=== PATIENT | female | born 1995 | race Caucasian/White ===

== ENCOUNTER → 2018-03-19 12:05 | Observation (INO) ==
--- NOTE | 2018-03-19 12:03 | Discharge Summary ---
Date of Encounter: 03/19/18 Time of Encounter: 12:01 - Discharge Diagnosis (1) 38 weeks gestation of Priority: Primary Status: Acute Comments: admitted for observation (2) NST (non-stress test) reactive on surveillance Priority: Secondary Status: Acute Comments: Baseline 145 bpm moderate variability +15x15 accels no decels noted. CAt. 1 tracing. Irregular contractions noted. Discussed patient with Dr. Jc. Patient to be discharged home and report tomorrow at schedule induction time (3) Gestational diabetes Priority: Secondary Status: Acute Comments: Scheduled for IOL tomorrow at 0600 Qualifiers: Gestational diabetes mellitus control: oral hypoglycemic-controlled Trimester: third trimester Qualified Code(s): O24.415 - Gestational diabetes mellitus in , controlled by oral hypoglycemic drugs - Discharge Medications Home Medications: metFORMIN [Glucophage] 500 mg PO BIDWM 03/19/18 [History] Allergies/Adverse Reactions: 3 Allergy/AdvReac Type Severity Reaction Status Date / Time No Known Allergies Allergy Verified 01/21/18 18:53 Date of admission: 03/19/18 09:27 Primary care physician: PCP NONE Discharging clinician: Nisha Fitzpatrick Anticipated date of discharge: 03/19/18 - Patient Status Disposition: Home, Self-Care Condition: Good Functional capacity at discharge: independent ambulation - Discharge Instructions Follow Up With: NONE,PCP [Primary Care Provider] - Low Houston MD [Partnered Physician] - Additional Instructions: LABOR AND DELIVERY DISCHARGE INSTRUCTIONS Signs and Symptoms to be Reported to your Doctor Immediately: * Sudden gush, continuous or intermittent lead of fluid from vagina (note the time of gush and color of fluid) * Onset of bright red vaginal bleeding with or without pain (if you had a vaginal exam during this visit you may notice some dark red spotting. This is normal.) * Contractions that are 5 minutes apart (from the beginning of one contraction to the beginning of the next) and last 45-60 seonds; contractions that you can no longer walk, talk or laugh through. * A change in the baby's activity. This could be an increase or decrease in activity. * Severe headache which does not go away with tylenol. * Sudden swelling in the face, hands, arms and/or legs. * Upper abdominal pain - sometimes associated with heartburn or nausea and is not relieved by Maalox, Mylanta or Tums. * Kick Counts __ One hour after a meal, lay down on one side in a quiet place. Count the number of time the baby moves during an hour. If less than 6 movements, notify your physician Diet: *Force fluids, 8 to 10 tall glasses of fluid per day - may include popsicles and jello *Limit caffeine - this includes chocolate, coffee, tea, any soft drink containing such as all anu, Dawit Yellow and Mountain Dew - Diet and Activity Activity: increase activity as tolerated Diet: diabetic diet Hospital Course [employer] Hospital course: Patient is a 23 y/o at 38w3 days presents to labor and delivery from OB office for monitoring. On NST in office FHR was reported to be 170 bpm. Patient reports +FM. Denies any LOF or VB. Time Attestation: Total time spent providing and/or coordinating discharge services: Time Spent: Less than 30 minutes Exam - Constitutional General appearance IM: A&O X 3, pleasant, answers questions appropriately - Respiratory Respiratory exam: Present: CTAB - Cardiovascular Cardiovascular exam IM: Present: RRR, +S1, +S2 - GI/Abdominal GI/Abdominal exam IM: normal bowel sounds - Neurological Exam Neurological exam: alert, oriented X3, reflexes normal - VTE Reasons for not Prescribing Prophylaxis: Treatment not Indicated - Low risk for VTE
== END | disposition home or self-care (01) ==
LOC: 1NENULAB
PROVIDERS: ADMIT Obstetrics & Gynecology; ATTEND Obstetrics & Gynecology

== ENCOUNTER 2018-03-20 06:17 | Inpatient (IN) ==
[2018-03-20] MEDS ORDERED: Naloxone 0.4 MG/ML INJ IVP PRN (06:35)
[2018-03-20] MEDS ORDERED: Famotidine 20 MG/2 ML VIAL IVP PRN (06:35)
[2018-03-20] MEDS ORDERED: Metoclopramide 10 MG/2 ML VIAL IVP PRN (06:35)
[2018-03-20] MEDS ORDERED: Ondansetron 4 MG/2 ML VIAL IVP PRN (06:35)
[2018-03-20] MEDS ORDERED: *HR* Nalbuphine 10 MG/ML AMPUL IVP PRN (06:35)
[2018-03-20 07:15] LABS: Basophils % 0.1 %; Eosinophils # 0.1 K/mcL (0.0-0.6); Eosinophils % 0.8 %; Hematocrit 34.8 % (35.3-44.9); Hemoglobin 11.9 g/dL (11.5-15.4); Immature Granulocytes % 0.6 % (0-4); Lymphocytes # 2.1 K/mcL (0.6-4.6); Lymphocytes % 19.4 %; Mean Corpuscular HGB Conc 34.2 g/dL (31.6-35.5); Mean Corpuscular Hemoglobin 29.8 pg (28.0-33.3); Mean Platelet Volume 10.1 fL (9.4-12.4); Monocytes # 0.7 K/mcL (0.0-1.3); Monocytes % 6.4 %; Neutrophils # 7.9 K/mcL (1.6-8.9); Platelet Count 248 K/mcL (140-400); Red Cell Distribution Width 13.7 % (11.5-14.5); Segmented Neutrophils % 72.7 %
[2018-03-20] MEDS ORDERED: miSOPROStol 25 MCG TABLET PO SCH (08:00)
[2018-03-20 09:10] LABS: Amphetamine Screen,Urine Negative ng/mL (Cutoff=1000); Barbiturate Screen,Urine Negative ng/mL (Cutoff=200); Benzodiazepines Screen,Urine Negative ng/mL (Cutoff=200); Cannabinoid Screen,Urine Negative ng/mL (Cutoff = 50); Cocaine Screen,Urine Negative ng/mL (Cutoff= 300); Opiate Screen,Urine Negative ng/mL (Cutoff=300); Phencyclidine Screen,Urine Negative ng/mL (Cutoff=25)
--- NOTE | 2018-03-20 10:01 | OB/GYN History & Physical ---
Date of Encounter: 03/20/18 Time of Encounter: 09:57 Assessment and Plan (1) 38 weeks gestation of Current visit: No Status: Acute (2) Gestational diabetes Current visit: No Status: Acute Admit to labor and delivery for induction of labor Cytotec by mouth Nubain and epidural as desired Anticipate Qualifiers: Gestational diabetes mellitus control: oral hypoglycemic-controlled Trimester: third trimester Qualified Code(s): O24.415 - Gestational diabetes mellitus in , controlled by oral hypoglycemic drugs History of Present Illness Chief complaint: Induction of labor HPI: Ms. Akbar is a 23 year old female () at 38 weeks +4 days gestation presenting to [facility] and delivery for induction of labor. Patient's was complicated by gestational diabetes for which she is prescribed metformin but admits to poor adherence. Patient had late entry to care. Patient reports good movement, denies vaginal bleeding or leaking of fluid prior to admission, denies headache, visual changes right upper quadrant pain. Labs: O+, VZV IgG antibody positive, Gardnerella Vaginalis DNA detected, Rubella pending, HIV antigen/antibody combo negative, Hep B negative, all other serologies negative. Past Med Surg Social Fam HX - Past Medical History Medical history: hypertension Psychiatric history: no psych history - Past Surgical History Surgical History: other Additional surgical history: tubes, T&A - Social History Smoking Status: Never smoker Smokeless Tobacco Status: No (previous) Alcohol use: none Drug use: none - Family History Father Adopted: No Family Member Ethnicity: Non- Living Status: Still Living Hx Family Cardiac Disorders: No Hx Family Respiratory Disorders: No Hx Family Cancer: No Hx Family GI Disorders: No Hx Family Genitourinary Disorders: No Hx Family Endocrine Disorder: No Hx Family Musculoskeletal Disorders: No Hx Family Neuromuscular Disorders: No Hx Family Neurologic Disorders: No Hx Family HEENT Disorders: No Hx Family Autoimmune Disorders: No Hx Family Reproductive Disorders: No Hx Family Psychosocial Disorders: No Hx Family Medical Disorders: No Obstetrical History - Pregnancies : 3 Para: 2 Term: 2 : 0 Ab's: 0 Livin Medications and Allergies metFORMIN [Glucophage] 500 mg PO BIDWM 03/19/18 [History] 3 Allergy/AdvReac Type Severity Reaction Status Date / Time No Known Allergies Allergy Verified 01/21/18 18:53 Review of System OB All systems PM: reviewed and no additional remarkable complaints except as stated Exam - Constitutional Constitutional: well developed, well nourished, no acute distress, obese - HEENT HEENT: EOMI, PERRL, Normocephaly, Mucus Membranes Moist - Lungs Respiratory exam: CTAB - Cardiovascular Cardiovascular exam: RRR, +S1, +S2 - Abdomen Abdomen: Present: bowel sounds normal, gravid, non tender. Absent: guarding noted, hepatomegaly, splenomegaly - Extremities Deep Tendon Reflex Grade: 2+ Normal Results Result Diagrams: 03/20/18 07:11 03/20/18 07:11 Abnormal lab results Hct 34.8 % (35.3-44.9) L 03/20/18 07:11 All other labs normal. - VTE Reasons for not Prescribing Prophylaxis: Treatment not Indicated - Low risk for VTE - Attending Attestation Patient was seen with resident. I have reviewed his history and physical and agree with its contents. Low Houston MD , FACOG
[2018-03-20] MEDS ORDERED: Oxytocin 20 units/ LR 1000 mL 20 UNIT/1,000 ML BAG IVC SCH ×2 (10:45→22:27)
[2018-03-20] MEDS: Ringers Solution, Lactated 1,000 ML IVC SCH ×2 (11:06→17:26)
[2018-03-20 11:29] LABS: HIV-1&2 Antibody & p24 Ag Nonreactive (Nonreactive); Hepatitis B Surface Antigen Nonreactive (Nonreactive)
--- NOTE | 2018-03-20 13:30 | OB Labor Progress Note ---
Date of Encounter: 03/20/18 Time of Encounter: 13:29 Labor Progress Note - Subjective Subjective: Pt coping with contractions - Cervix Cervix: 4/80/-2 - Heart Tones Heart Tones: 145/moderate/+accels/-decels - Gould Gould: 1-3 - Plan Plan: Continue pitocin per policy nuabin and epidural as desired Anticipate
--- NOTE | 2018-03-20 18:35 | OB Labor Progress Note ---
Date of Encounter: 03/20/18 Time of Encounter: 18:33 Labor Progress Note - Subjective Subjective: patient coping with contractions - Cervix Cervix: 6-7/90/-1 - Heart Tones Heart Tones: 140/moderate/-accels/variable, early late decels - Vancleave Vancleave: 1-3 - Plan Plan: Frequent repositioning pitocin per policy epidural as desired Dr. Houston updated on status Anticipate
--- NOTE | 2018-03-20 19:10 | OB Labor Progress Note ---
Date of Encounter: 03/20/18 Time of Encounter: 19:12 Labor Progress Note - Subjective Subjective: Anesthesiology spoke with patient regarding options for pain management. Patient emphatically refused epidural and precautions were explained including the risk for requiring general anesthesia in the case of emergent section. - Cervix Cervix: 8-9/90%/0 station - Heart Tones Heart Tones: Baseline 150s - [place]: Variable decelerations - Plan Plan: Frequent repositioning Internal monitoring pitocin per policy epidural as desired Anticipate
--- NOTE | 2018-03-20 20:07 | OB/GYN Procedure Note ---
Delivery - Delivery Date: 03/20/18 Provider: Arianna Cazares (Marcelo Johansen PGY1 assist) Intrapartum events: none Delivery induction: oxytocin, misoprostol Delivery monitor: external FHT, external uterine Anesthesia: intravenous Quantitated Blood Loss: 300 - (s) Infant A Delivery Date: 03/20/18 Infant Delivery Time: 19:46 Presentation: vertex Position: OA Route of delivery: Gender: Male Viability: Viable Pounds: 8 Ounces: 12 Weight Gram: 3970 kg at 1 minute: 8 at 5 mins: 9 Shoulder Dystocia: encountered Shoulder Dystocia Maneuvers: Bettina maneuver, suprapubic pressure, Mac Screw maneuver Specimens collected: cord blood Placenta: spontaneous Cord: nuchal cord, 3 umbilical vessels - Repair Episiotomy: none Laceration Description: None - Complications Delivery complications: none Delivery comments: Induction of labor for gestational diabetes, progressed to complete, maternal bearing down efforts to of liveborn male. Vertex delivered OA, with rotation into LOT, Nuchal cord identified in reduced, shoulder dystocia noted, Bettina, suprapubic pressure, wood screw maneuver into ROT, used to dislodge shoulder, shoulder dystocia time 45 seconds. Cord immediately clamped and cut and limp placed on radiant warmer for drying and stimulation. Apgars 8/ 9. Placenta delivered spontaneously (Metzger) complete and intact upon inspection. Fundus massaged until firm and pitocin started per policy. Perineal lacerations noted. EBL 300. Dr. Houston at bedside for possible and encountered shoulder dystocia - Disposition Mom disposition: stable in LDR Petros disposition: stable in LDR - Comments Comments: I was present at the time of delivery and the second stage. I assisted in the delivery. I reviewed the contents of this note and agree with them.
[2018-03-20] MEDS ORDERED: Lanolin 28 GM TUBE TP PRN (22:27)
[2018-03-20] MEDS ORDERED: Acetaminophen 325 MG TABLET PO PRN (22:27)
[2018-03-20] MEDS ORDERED: Benzocaine/Menthol 56 GM AEROSOL SPRAY TP PRN (22:27)
[2018-03-20] MEDS ORDERED: Ibuprofen 600 MG TABLET PO PRN (22:27)
[2018-03-20] MEDS ORDERED: Measles/Mumps/Rubella Vacc 0.5 ML VIAL SQ PRN (22:27)
[2018-03-21 06:45] LABS: Basophils % 0.2 %; Eosinophils % 0.2 %; Hematocrit 33.2 % (35.3-44.9); Hemoglobin 11.4 g/dL (11.5-15.4); Lymphocytes # 2.1 K/mcL (0.6-4.6); Lymphocytes % 10.8 %; Mean Corpuscular HGB Conc 34.3 g/dL (31.6-35.5); Mean Corpuscular Hemoglobin 29.9 pg (28.0-33.3); Mean Corpuscular Volume 87.1 fL (83.0-100.0); Mean Platelet Volume 9.9 fL (9.4-12.4); Monocytes # 1.4 K/mcL (0.0-1.3); Monocytes % 7.5 %; Neutrophils # 15.3 K/mcL (1.6-8.9); Platelet Count 257 K/mcL (140-400); Red Blood Count 3.81 M/mcL (3.82-4.97); Red Cell Distribution Width 13.6 % (11.5-14.5); Segmented Neutrophils % 80.3 %
[2018-03-21] MEDS: Prenatal Vit/FA 1 EACH TABLET PO SCH (08:08)
--- NOTE | 2018-03-21 09:47 | OB/GYN Progress Note ---
Date of Encounter: 03/21/18 Time of Encounter: 09:42 - Assessment and Plan (1) Vaginal delivery Current Visit: Yes Status: Acute Pt meeting milestones. Anticipate discharge home PPD#2. (2) Gestational diabetes Current Visit: No Status: Acute Plan for 2 hour GTT in 6 weeks. Qualifiers: Gestational diabetes mellitus control: oral hypoglycemic-controlled Trimester: third trimester Qualified Code(s): O24.415 - Gestational diabetes mellitus in , controlled by oral hypoglycemic drugs Subjective - Subjective Patient reports: appetite normal, voiding normally, pain well controlled, ambulating normally : doing well, bottle feeding Objective - Latest Vital Signs Latest vital signs: Vital Signs Temp Pulse Resp BP Pulse Ox 03/21/18 07:46 98.8 F 86 14 120/84 99 03/21/18 00:10 99 F 104 20 124/73 97 03/20/18 23:10 98.6 F 65 14 129/78 97 03/20/18 22:10 98.7 F 96 14 129/82 96 Intake and Output 03/20/18 03/21/18 03/21/18 23:59 07:59 15:59 Intake Total 800 / 800 1300 / 1300 300 / 300 Output Total 900 / 900 500 / 500 Balance -100 / -100 800 / 800 300 / 300 Intake: IV Fluids 800 / 800 Lactated Ringers 1,000 ML @ 125 800 / 800 mls/hr IVC .Q8H [facility] Rx#: [id number] Oral 300 / 300 300 / 300 Other 1000 / 1000 Output: Urine 500 / 500 500 / 500 Estimated Blood Loss 300 / 300 Straight Cath 100 / 100 Other: Meal Breakfast Percent of Meal Consumed 100% Weight 94.256 kg Patient Weight 03/21/18 23:59 Weight 94.256 kg - Exam Lungs: bilateral: normal Chest: Normal S2 Extremities: Present: edema (mild bilaterally) Abdomen: Present: soft. Absent: tenderness Uterus: Present: firm. Absent: tenderness Uterus Position: At Umbilicus - Labs Labs: Laboratory Results - last 24 hr 03/20/18 03/20/18 03/21/18 10:11 11:28 06:04 WBC 19.0 H D RBC 3.81 L Hgb 11.4 L Hct 33.2 L MCV 87.1 MCH 29.9 MCHC 34.3 RDW 13.6 Plt Count 257 MPV 9.9 Immature Gran % 1.0 Seg Neutrophils % 80.3 Lymphocytes % 10.8 Monocytes % 7.5 Eosinophils % 0.2 Basophils % 0.2 Neutrophils # 15.3 H Lymphocytes # 2.1 Monocytes # 1.4 H Eosinophils # 0.0 Basophils # 0.0 Immature Plt Fraction 4.0 POC Glucose 84 Hep Bs Antigen Nonreactive HIV Ag/Ab Combo Qual Nonreactive
[2018-03-22 08:10] VITALS: BP 115/69
[2018-03-22] MEDS: Prenatal Vit/FA 1 EACH TABLET PO SCH (08:11)
--- NOTE | 2018-03-22 09:46 | Discharge Summary ---
Date of Encounter: 03/22/18 Time of Encounter: 09:44 - Discharge Diagnosis (1) Vaginal delivery Priority: Primary Status: Acute Comments: continue routine care discharge home today follow up with Dr. Houston in 4-6 weeks (2) Gestational diabetes Priority: Secondary Status: Acute Comments: Patient will need a 2 hour gtt after 6 weeks pp Qualifiers: Gestational diabetes mellitus control: oral hypoglycemic-controlled Trimester: third trimester Qualified Code(s): O24.415 - Gestational diabetes mellitus in , controlled by oral hypoglycemic drugs - Discharge Medications Allergies/Adverse Reactions: 3 Allergy/AdvReac Type Severity Reaction Status Date / Time No Known Allergies Allergy Verified 01/21/18 18:53 Data Procedures and tests throughout hospitalization: Laboratory Tests 03/20/18 03/20/18 03/20/18 07:11 07:11 07:11 WBC 10.8 RBC 4.00 Hgb 11.9 Hct 34.8 L MCV 87.0 MCH 29.8 MCHC 34.2 RDW 13.7 Plt Count 248 MPV 10.1 Immature Gran % 0.6 Seg Neutrophils % 72.7 Lymphocytes % 19.4 Monocytes % 6.4 Eosinophils % 0.8 Basophils % 0.1 Neutrophils # 7.9 Lymphocytes # 2.1 Monocytes # 0.7 Eosinophils # 0.1 Basophils # 0.0 Immature Plt Fraction Glucose 98 POC Glucose Urine Opiates Screen Negative Ur Barbiturates Screen Negative Ur Phencyclidine Scrn Negative Ur Amphetamines Screen Negative U Benzodiazepines Scrn Negative Urine Cocaine Screen Negative U Marijuana (THC) Screen Negative Ur Drug Screen Interp See Below Hep Bs Antigen HIV Ag/Ab Combo Qual 03/20/18 03/20/18 03/20/18 09:19 10:11 11:28 WBC RBC Hgb Hct MCV MCH MCHC RDW Plt Count MPV Immature Gran % Seg Neutrophils % Lymphocytes % Monocytes % Eosinophils % Basophils % Neutrophils # Lymphocytes # Monocytes # Eosinophils # Basophils # Immature Plt Fraction Glucose POC Glucose 87 84 Urine Opiates Screen Ur Barbiturates Screen Ur Phencyclidine Scrn Ur Amphetamines Screen U Benzodiazepines Scrn Urine Cocaine Screen U Marijuana (THC) Screen Ur Drug Screen Interp Hep Bs Antigen Nonreactive HIV Ag/Ab Combo Qual Nonreactive 03/21/18 06:04 WBC 19.0 H D RBC 3.81 L Hgb 11.4 L Hct 33.2 L MCV 87.1 MCH 29.9 MCHC 34.3 RDW 13.6 Plt Count 257 MPV 9.9 Immature Gran % 1.0 Seg Neutrophils % 80.3 Lymphocytes % 10.8 Monocytes % 7.5 Eosinophils % 0.2 Basophils % 0.2 Neutrophils # 15.3 H Lymphocytes # 2.1 Monocytes # 1.4 H Eosinophils # 0.0 Basophils # 0.0 Immature Plt Fraction 4.0 Glucose POC Glucose Urine Opiates Screen Ur Barbiturates Screen Ur Phencyclidine Scrn Ur Amphetamines Screen U Benzodiazepines Scrn Urine Cocaine Screen U Marijuana (THC) Screen Ur Drug Screen Interp Hep Bs Antigen HIV Ag/Ab Combo Qual Date of admission: 03/20/18 06:17 Consults: 03/20/18 22:[address] Crossing Guard [CONS] Routine Comment: Vaginal delivery, consult needed Discharging clinician: Nisha Fitzpatrick Anticipated date of discharge: 03/22/18 - Patient Status Disposition: Home, Self-Care Condition: Good Functional capacity at discharge: independent ambulation - Discharge Instructions Follow Up With: Low Houston MD [Partnered Physician] - - Diet and Activity Activity: increase activity as tolerated Diet: regular diet Hospital Course Reason for admission: induction of labor Delivery: Episiotomy: none Laceration: none Other procedures: none complications: none Discharge diagnosis: IUP at term delivered baby: male (bottle feeding) Time Attestation: Total time spent providing and/or coordinating discharge services: Time Spent: Less than 30 minutes Exam - Constitutional Vitals: Temp Pulse Resp BP Pulse Ox 97.8 F 79 16 115/69 98 03/22/18 07:30 03/22/18 07:30 03/22/18 07:30 03/22/18 07:30 03/21/18 20:10 General appearance IM: A&O X 3, pleasant - Respiratory Respiratory exam: Present: CTAB - Cardiovascular Cardiovascular exam IM: Present: RRR, +S1, +S2 - GI/Abdominal GI/Abdominal exam IM: normal bowel sounds - Uterine Tone: Firm Uterus Position: At Umbilicus, Midline - Extremities Exam Extremities exam IM: Present: full ROM, normal capillary refill, normal inspection - Neurological Exam Neurological exam: alert, oriented X3, reflexes normal
== END 2018-03-22 10:32 | disposition home or self-care (01) | DRG 560 ==
LOC: 1NENULAB 06:17 → 1NENUOBS 22:24
PROVIDERS: ADMIT Obstetrics & Gynecology; ATTEND Obstetrics & Gynecology